=== PATIENT | female | born 1985 | race Caucasian/White ===

== ENCOUNTER 2018-12-27 13:29 | Emergency (ER) | payer SELFPAY ==
[2018-12-27] MEDS: METHOCARBAMOL 750 MG TAB PO (17:16)
[2018-12-27] MEDS: KETOROLAC 30 MG INJ IM (17:16)
[2018-12-27] MEDS: HYDROCODONE/APAP (5/325) TAB PO (19:23)
== END 2018-12-27 19:58 | disposition home or self-care (01) ==
LOC: FTE 13:29
DX: R51 Headache (principal); R40.2142 Coma scale, eyes open, spontaneous, at arrival to emergency department; R40.2252 Coma scale, best verbal response, oriented, at arrival to emergency department; R40.2362 Coma scale, best motor response, obeys commands, at arrival to emergency department
CPT/HCPCS: 70450; 81025; 96372; 99285-25